=== PATIENT | female | born 2000 | race Caucasian/White ===

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

== ENCOUNTER 2021-01-27 17:18 | Outpatient (REF) | payer OTHER, SELFPAY ==
[2021-01-30 15:07] LABS: Chlamydia Result Negative (Negative); GC Result Negative (Negative)
== END 2021-01-27 17:19 | disposition home or self-care (01) ==
LOC: LBN 17:18
PROVIDERS: Visit Provider Obstetrics & Gynecology
DX: Z30.8 Encounter for other contraceptive management (principal); Z11.8 Encounter for screening for other infectious and parasitic diseases
CPT/HCPCS: 87491; 87591